=== PATIENT | male | born 1950 | race Caucasian/White ===

== ENCOUNTER 2022-04-28 11:07 | Inpatient (IN) ==
[2022-04-28] MEDS ORDERED: Ondansetron 4 MG/2 ML VIAL IVP STA (13:49)
[2022-04-28] MEDS ORDERED: 0.9 % Sodium Chloride 1,000 ML IV ONE (14:20)
[2022-04-28 14:46] LABS: Bilirubin,Urine Negative (Negative); Blood,Urine Negative (Negative); Clarity,Urine Clear (Clear); Color,Urine Light-Yellow (Yellow); Glucose,Urine (UA) >=1000 mg/dL (Normal); Ketones,Urine Negative (Negative); Leukocyte Esterase,Urine Negative (Negative); Nitrite,Urine Negative (Negative); Protein,Urine Trace mg/dL (Neg-Trace); RBC,Urine 0-3 per hpf (0-3); Specific Gravity,Urine 1.014 (1.010-1.025); Urobilinogen,Urine Normal (Normal); WBC,Urine 0-3 per hpf (0-3)
[2022-04-28] MEDS ORDERED: *HR* HYDROmorphone (PF) 1 MG/ML SYRINGE IVP ONE (15:02)
[2022-04-28 15:08] LABS: Basophils % 0.5 %; Hemoglobin 8.6 g/dL (12.9-16.9); Mean Corpuscular Volume 96.7 fL (83.0-100.0)
[2022-04-28 15:10] LABS: Eosinophils % 1.4 %; Hematocrit 26.3 % (37.5-50.1); Immature Granulocytes % 0.9 % (0-4); Immature Platelets 1.8 % (1.1-6.1); Lymphocytes # 0.5 K/mcL (0.6-4.6); Lymphocytes % 25.1 %; Mean Corpuscular HGB Conc 32.7 g/dL (31.6-35.5); Mean Corpuscular Hemoglobin 31.6 pg (28.0-33.3); Mean Platelet Volume 9.3 fL (9.4-12.4); Monocytes # 0.1 K/mcL (0.0-1.3); Monocytes % 6.2 %; Neutrophils # 1.4 K/mcL (1.6-8.9); Red Blood Count 2.72 M/mcL (4.19-5.50); Red Cell Distribution Width 14.6 % (11.5-14.5); Segmented Neutrophils % 65.9 %; White Blood Count 2.1 K/mcL (4.3-11.1)
[2022-04-28 15:12] LABS: Platelet Count 47 K/mcL (140-400)
[2022-04-28 15:16] LABS: Prothrombin Time 11.5 Seconds (9.4-12.1)
[2022-04-28 15:19] LABS: Activated Partial Thrombo Time 34.3 Seconds (26.0-36.0)
[2022-04-28 15:25] LABS: Albumin 3.6 g/dL (3.5-5.7); Albumin/Globulin Ratio 1.4 (1.1-2.2); Bilirubin,Direct 0.1 mg/dL (0.0-0.2); Bilirubin,Indirect 0.5 mg/dL (0.0-1.0); Bilirubin,Total 0.6 mg/dL (0.3-1.0); Calcium 9.3 mg/dL (8.6-10.3); Globulin 2.5 g/dL (2.4-3.5); Magnesium 1.9 mg/dL (1.6-2.6); Potassium 3.7 mEq/L (3.5-5.1); Total Protein 6.1 g/dL (6.4-8.9)
[2022-04-28] MEDS ORDERED: Ondansetron 4 MG/2 ML VIAL IVP PRN (17:04)
[2022-04-28] MEDS ORDERED: Naloxone 0.4 MG/ML INJ IVP PRN (17:04)
[2022-04-28] MEDS ORDERED: Dextrose Gel 15 GM/37.5 ML TUBE PO PRN ×2 (17:13)
[2022-04-28] MEDS ORDERED: *HR* Dextrose 50 % in Water (Syg) 50 ML SYRINGE IVP PRN (17:13)
[2022-04-28] MEDS ORDERED: D5% in Water 1,000 ML IVC PRN (17:13)
[2022-04-28] MEDS ORDERED: Ringers Solution, Lactated 1,000 ML IVC SCH ×2 (17:15)
[2022-04-28] MEDS ORDERED: Fidaxomicin 200 MG TABLET PO ONE (17:59)
[2022-04-28] MEDS ORDERED: Torsemide 20 MG TABLET PO PRN (18:01)
[2022-04-28] MEDS: Mirtazapine 15 MG TABLET PO SCH (20:47)
[2022-04-28] MEDS: Metoprolol XL (24 HR) Succ 25 MG TAB.ER.24H PO SCH (20:47)
[2022-04-28] MEDS ORDERED: Insulin LISPRO 300 UNITS/3 ML VIAL SUBQ SCH (21:00)
[2022-04-28] MEDS ORDERED: Fidaxomicin 200 MG TABLET PO SCH (21:00)
[2022-04-28] MEDS ORDERED: *HR* Heparin 5,000 UNIT/ML VIAL SQ SCH (22:00)
[2022-04-29] MEDS: *HR* LORazepam 1 MG TABLET PO PRN ×3 (02:27→14:41)
[2022-04-29] MEDS: Sacubitril/Valsartan 24/26 MG 1 TABLET PO SCH ×3 (03:50→20:33)
[2022-04-29] MEDS: Cholestyramine 4 GM POWD.PACK PO SCH (07:15)
[2022-04-29] MEDS ORDERED: Insulin LISPRO 300 UNITS/3 ML VIAL SUBQ SCH (07:30)
[2022-04-29] MEDS: Aspirin Enteric Coated 81 MG Tablet PO SCH (08:50)
[2022-04-29] MEDS: Fidaxomicin 200 MG TABLET PO SCH ×3 (08:51→20:32)
[2022-04-29 11:26] LABS: Basophils % 0.3 %; Eosinophils # 0.1 K/mcL (0.0-0.6); Hematocrit 24.1 % (37.5-50.1); Hemoglobin 7.6 g/dL (12.9-16.9); Immature Granulocytes % 1.4 % (0-4); Lymphocytes # 0.6 K/mcL (0.6-4.6); Lymphocytes % 18.6 %; Mean Corpuscular HGB Conc 31.5 g/dL (31.6-35.5); Mean Corpuscular Hemoglobin 31.1 pg (28.0-33.3); Mean Corpuscular Volume 98.8 fL (83.0-100.0); Mean Platelet Volume 9.4 fL (9.4-12.4); Monocytes # 0.2 K/mcL (0.0-1.3); Monocytes % 7.1 %; Neutrophils # 2.1 K/mcL (1.6-8.9); Red Blood Count 2.44 M/mcL (4.19-5.50); Red Cell Distribution Width 14.6 % (11.5-14.5); Segmented Neutrophils % 70.6 %
[2022-04-29 11:30] LABS: Platelet Count 29 K/mcL (140-400)
[2022-04-29 11:32] LABS: INR 1.1; Prothrombin Time 11.7 Seconds (9.4-12.1)
[2022-04-29 11:46] LABS: Albumin 3.3 g/dL (3.5-5.7); Albumin/Globulin Ratio 1.7 (1.1-2.2); Bilirubin,Total 0.4 mg/dL (0.3-1.0); Calcium 8.7 mg/dL (8.6-10.3); Magnesium 1.8 mg/dL (1.6-2.6); Phosphorous 2.8 mg/dL (2.7-4.5); Potassium 4.3 mEq/L (3.5-5.1); Total Protein 5.3 g/dL (6.4-8.9)
[2022-04-29 12:01] LABS: Estimated Average Glucose 117 mg/dl; Hemoglobin A1C 5.7 %
[2022-04-29 12:13] LABS: Folate 6.8 ng/mL (3.0-16.0)
[2022-04-29] MEDS ORDERED: 0.9 % Sodium Chloride 250 ML ONE ×2 (17:07→17:46)
[2022-04-29] MEDS: Budesonide/Formoterol 160/4.5 1 PUFF INH IH SCH (20:02)
[2022-04-29] MEDS: Metoprolol XL (24 HR) Succ 25 MG TAB.ER.24H PO SCH (20:33)
[2022-04-29] MEDS: Mirtazapine 15 MG TABLET PO SCH (20:33)
[2022-04-29] MEDS: traZODone 50 MG TABLET PO PRN (20:37)
[2022-04-29] MEDS: Melatonin 3 MG TABLET PO PRN (20:37)
[2022-04-30 00:56] LABS: Basophils % 0.4 %; Eosinophils # 0.1 K/mcL (0.0-0.6); Eosinophils % 2.5 %; Hematocrit 23.2 % (37.5-50.1); Hemoglobin 7.6 g/dL (12.9-16.9); Immature Granulocytes % 1.2 % (0-4); Lymphocytes # 0.5 K/mcL (0.6-4.6); Mean Corpuscular HGB Conc 32.8 g/dL (31.6-35.5); Mean Corpuscular Hemoglobin 31.3 pg (28.0-33.3); Mean Corpuscular Volume 95.5 fL (83.0-100.0); Mean Platelet Volume 9.5 fL (9.4-12.4); Monocytes # 0.3 K/mcL (0.0-1.3); Monocytes % 10.7 %; Red Blood Count 2.43 M/mcL (4.19-5.50); Red Cell Distribution Width 14.5 % (11.5-14.5); Segmented Neutrophils % 64.2 %; White Blood Count 2.4 K/mcL (4.3-11.1)
[2022-04-30 00:57] LABS: Neutrophils # 1.5 K/mcL (1.6-8.9)
[2022-04-30 01:00] LABS: Platelet Count 24 K/mcL (140-400)
[2022-04-30 01:17] LABS: Calcium 8.2 mg/dL (8.6-10.3); Magnesium 1.7 mg/dL (1.6-2.6); Potassium 3.8 mEq/L (3.5-5.1)
[2022-04-30] MEDS: Cholestyramine 4 GM POWD.PACK PO SCH (08:03)
[2022-04-30 09:45] LABS: Immature Reticulocyte % 27.7 % (11.0-38.0); Retculocyte # 0.06 M/mcL (0.05-0.10); Reticulocyte % 2.4 % (1.6-2.8)
[2022-04-30 10:07] LABS: % Iron Saturation 31 % (20-55); Iron 72 mcg/dL (65-175); Transferrin 165 mg/dL (203-362)
[2022-04-30 10:25] LABS: Ferritin 274 ng/mL (20-250)
[2022-04-30] MEDS: Sacubitril/Valsartan 24/26 MG 1 TABLET PO SCH ×2 (10:26→20:09)
[2022-04-30] MEDS: Fidaxomicin 200 MG TABLET PO SCH ×2 (10:26→20:09)
[2022-04-30] MEDS: Aspirin Enteric Coated 81 MG Tablet PO SCH (10:26)
[2022-04-30] MEDS: Budesonide/Formoterol 160/4.5 1 PUFF INH IH SCH ×2 (10:41→20:28)
[2022-04-30] MEDS: Tiotropium 10 INH DOSE IH SCH (10:42)
[2022-04-30] MEDS: *HR* LORazepam 1 MG TABLET PO PRN ×2 (13:03→20:14)
[2022-04-30] MEDS: Cyanocobalamin (B-12) 1,000 MCG/ML VIAL SQ SCH (13:03)
[2022-04-30] MEDS: traZODone 50 MG TABLET PO PRN (20:09)
[2022-04-30] MEDS: Metoprolol XL (24 HR) Succ 25 MG TAB.ER.24H PO SCH (20:09)
[2022-04-30] MEDS: Melatonin 3 MG TABLET PO PRN (20:09)
[2022-04-30] MEDS: Mirtazapine 15 MG TABLET PO SCH (20:10)
[2022-05-01] MEDS: Cholestyramine 4 GM POWD.PACK PO SCH (05:25)
[2022-05-01] MEDS: Tiotropium 10 INH DOSE IH SCH (07:40)
[2022-05-01] MEDS: Budesonide/Formoterol 160/4.5 1 PUFF INH IH SCH (07:40)
[2022-05-01] MEDS: Cyanocobalamin (B-12) 1,000 MCG/ML VIAL SQ SCH (09:39)
[2022-05-01] MEDS: Aspirin Enteric Coated 81 MG Tablet PO SCH (09:39)
[2022-05-01] MEDS: Sacubitril/Valsartan 24/26 MG 1 TABLET PO SCH (09:39)
[2022-05-01] MEDS: Fidaxomicin 200 MG TABLET PO SCH (09:39)
[2022-05-01 10:40] VITALS: BP 129/74; PULSE 72; TEMP 97.8; O2SAT 96
[2022-05-04 11:52] LABS: Immunoglobulin A 124 mg/dL (68-408); Immunoglobulin G 343 mg/dL (768-1632); Immunoglobulin M 43 mg/dL (35-263)
== END 2022-05-01 13:40 | disposition home or self-care (01) | DRG 371 ==
LOC: EMEROOARM 11:07 → 3ANU 11:07 → SUATTDRO 17:28 → 3ANU 19:54
PROVIDERS: ADMIT Internal Medicine; ATTEND Internal Medicine